=== PATIENT | female | born 1970 | race Caucasian/White ===

== ENCOUNTER 2024-10-21 14:11 | Inpatient (IN) | payer OTHER ==
[2024-10-21 14:34] VITALS: BMI 16.5
[2024-10-21] MEDS ORDERED: POLYETHYLENE GLYCOL (HEALTHYLAX) 3350 17 GM PACKET PO PRN (14:58)
[2024-10-21] MEDS ORDERED: BISMUTH SUBSALICYLATE 524 MG/30 ML PO PRN (14:58)
[2024-10-21] MEDS ORDERED: guaiFENesin 600 MG TABLET.ER (FP) PO PRN (14:58)
[2024-10-21] MEDS ORDERED: BENZONATATE 200 MG CAPSULE PO PRN (14:58)
[2024-10-21] MEDS ORDERED: IBUPROFEN 600 MG TABLET (FP) PO PRN (14:58)
[2024-10-21] MEDS ORDERED: MAG HYDROX/AL HYDROX/SIMETH 30 ML UNIT-DOSE CUP PO PRN (14:58)
[2024-10-21] MEDS ORDERED: ACETAMINOPHEN 325 MG TABLET (FP) PO PRN (14:58)
[2024-10-21] MEDS ORDERED: LOPERAMIDE HCL 2 MG CAPSULE PO PRN (14:58)
[2024-10-21] MEDS ORDERED: hydrOXYzine PAMOATE 25 MG CAPSULE (FP) PO PRN (14:58)
[2024-10-21] MEDS ORDERED: BENZOCAINE/MENTHOL (CHLORASEPTIC ) LOZENGE MM PRN (14:58)
[2024-10-21] MEDS ORDERED: diazePAM 5 MG TABLET PO PRN (14:58)
[2024-10-21] MEDS ORDERED: IBUPROFEN 400 MG TABLET (FP) PO PRN (14:58)
[2024-10-21] MEDS ORDERED: MAGNESIUM HYDROX 2400MG/30ML ORAL SUSPENSION 30 ML CUP PO PRN (14:58)
[2024-10-21] MEDS ORDERED: ONDANSETRON *ODT* 4 MG TABLET SL PRN (14:58)
[2024-10-21] MEDS ORDERED: DICYCLOMINE HCL 10 MG CAPSULE PO PRN (14:58)
[2024-10-21] MEDS ORDERED: NALOXONE (NARCAN) HCL 4 MG/0.1 ML SPRAY NS PRN (14:58)
[2024-10-21] MEDS: ALBUTEROL SO4 HFA INHALER IH SCH (15:44)
[2024-10-21] MEDS ORDERED: PRENATAL VITAMINS W/ FOLIC ACID TABLET (FP) PO ONE (15:49)
[2024-10-21] MEDS ORDERED: NICOTINE 21 MG/24 HOURS TOPICAL PATCH ONE (15:49)
[2024-10-21] MEDS ORDERED: NICOTINE POLACRILEX 2 MG GUM ONE (15:49)
[2024-10-21] MEDS: PRENATAL VITAMINS W/ FOLIC ACID TABLET (FP) PO SCH (15:52)
[2024-10-21] MEDS: NICOTINE 21 MG/24 HOURS TOPICAL PATCH TD SCH (15:52)
[2024-10-21] MEDS: NICOTINE POLACRILEX 2 MG GUM BUC PRN (15:53)
[2024-10-21] MEDS ORDERED: ALBUTEROL SO4 HFA INHALER IH PRN (17:25)
[2024-10-21] MEDS: diazePAM 5 MG TABLET PO SCH (17:58)
[2024-10-21] MEDS: MELATONIN 5 MG TABLETS PO SCH (22:15)
[2024-10-21] MEDS: THIAMINE 100 MG TABLET PO SCH (23:13)
[2024-10-21] MEDS: METHOCARBAMOL 500 MG TABLET PO PRN (23:13)
[2024-10-21] MEDS: ACAMPROSATE CALCIUM 333 MG TABLET.DR PO SCH (23:13)
[2024-10-22 12:39] LABS: HEMATOCRIT 45.4 % (34.1-44.9); HEMOGLOBIN 13.9 g/dL (11.2-15.7); MCHC 30.6 g/dl (32.2-35.5); MEAN CELL VOLUME 97.8 fl (79.4-94.8); MEAN PLT VOLUME 9.9 fl (9.4-12.3); PLATELET COUNT # 281 x10^3/uL (182-369); RDW 12.8 % (12.3-16.6)
[2024-10-22 12:51] LABS: CHLORIDE 106 mmol/L (98-107); POTASSIUM 4.5 mmol/L (3.5-5.1); SODIUM 143 mmol/L (136-145)
[2024-10-22 12:56] LABS: ALBUMIN 3.3 g/dl (3.4-5.0); ANION GAP 6 mmol/L (4-13); BLOOD UREA NITROGEN 8.7 mg/dL (7-18); CALCIUM 9.1 mg/dL (8.5-10.1); CO2 32 mmol/L (21-32)
[2024-10-22 12:57] LABS: GLUCOSE,RANDOM 121 mg/dL (74-106)
[2024-10-22 12:59] LABS: CREATININE 0.9 mg/dL (0.55-1.3); SGOT/AST 24 U/L (15-37); SGPT/ALT 24 U/L (13-61)
[2024-10-22 13:01] LABS: BILIRUBIN,TOTAL 0.5 mg/dL (0.2-1); TOT PROT 6.6 g/dl (6.4-8.2)
[2024-10-22 13:02] LABS: ALK PHOS 97 U/L (45-117)
[2024-10-22] MEDS: methaDONE HCL 40 MG DISPERSABLE TABLET PO SCH (13:29)
[2024-10-22 13:44] LABS: HCV DIAGNOSTIC IN-HOUSE W/RFLX NON-REACTIVE (NONREACTIVE); HIV INTERPRETATION NEGATIVE (NEGATIVE)
[2024-10-22] MEDS: OLANZapine 10 MG TABLET PO SCH (22:09)
[2024-10-23] MEDS: diazePAM 5 MG TABLET PO SCH (06:00)
[2024-10-24] MEDS: diazePAM 5 MG TABLET PO SCH (06:03)
[2024-10-25] MEDS: diazePAM 5 MG TABLET PO ONE (05:38)
[2024-10-25 06:50] VITALS: PULSE 72; RESP 16
[2024-10-25 09:11] VITALS: BP 108/60; TEMP 98
== END 2024-10-25 10:05 | disposition other institution (70) | DRG 773 ==
LOC: YASAS 14:11 → Y6N 15:33 → UNDODISIN 10-22 09:28
PROVIDERS: ADMIT Allergy & Immunology; ATTEND Allergy & Immunology
PROC: HZ2ZZZZ Detoxification Services for Substance Abuse Treatment (ICD-10-PCS; principal; 2024-10-21)
DX: F10.230 Alcohol dependence with withdrawal, uncomplicated (principal); F11.20 Opioid dependence, uncomplicated; F14.20 Cocaine dependence, uncomplicated; F17.213 Nicotine dependence, cigarettes, with withdrawal; F19.282 Other psychoactive substance dependence with psychoactive substance-induced sleep disorder; F19.280 Other psychoactive substance dependence with psychoactive substance-induced anxiety disorder; F19.24 Other psychoactive substance dependence with psychoactive substance-induced mood disorder; F20.9 Schizophrenia, unspecified; J45.20 Mild intermittent asthma, uncomplicated; Z62.810 Personal history of physical and sexual abuse in childhood; Z91.410 Personal history of adult physical and sexual abuse
CPT/HCPCS: 36415; 80053; 80305; 80307; 85027; 86780; 86803; 87389; 93005; 93010